=== PATIENT | male | born 1950 | race Caucasian/White ===

== ENCOUNTER 2017-05-31 19:35 | Emergency (ER) | payer MEDICARE, MEDICAID ==
[~2017-05-31] VITALS: Ht 170.2 cm; Wt 72.6 kg
[2017-05-31] MEDS ORDERED: cloNIDine HCL 0.1 MG TAB PO ONE (19:45)
[2017-05-31 20:50] LABS: Basophils # (auto) 0.1 uL; Basophils % (auto) 1.4 % (0.0-2.0); Eosinophils # (auto) 0.3 uL; Eosinophils % (auto) 3.3 % (0.0-7.0); Hematocrit 43.8 % (41.0-53.0); Hemoglobin 15.4 g/dL (13.5-17.5); Lymphocytes # (auto) 2.7 uL; Lymphocytes % (auto) 28.4 % (10.0-50.0); Mean Corpuscular Hgb Conc. 35.2 g/dL (32.0-36.0); Mean Corpuscular Volume 90.8 fL (80.0-100.0); Monocytes # (auto) 0.6 uL; Monocytes % (auto) 6.2 % (0.0-12.0); Neutrophils # (auto) 5.9 uL; Neutrophils % (auto) 60.7 % (37.0-80.0); Platelet Count (auto) 338 10^3/uL (140-450); Red Blood Cells 4.83 10^6/uL (4.5-5.90); Red Cell Distribution Width 12.7 % (11.8-14.3); White Blood Cell 9.7 10^3/uL (4.4-10.8)
[2017-05-31 21:04] LABS: INR 0.95 (0.9-1.15); Partial Thromboplastin Time 26.6 sec (22.64-33.71); Prothrombin Time 10.3 sec (9.37-12.3)
[2017-05-31 21:11] LABS: Anion Gap 8 (5-15); Blood Urea Nitrogen 14 mg/dL (7-18); Calcium 8.9 mg/dL (8.5-10.1); Carbon Dioxide 26 mmol/L (21-32); Chloride 104 mmol/L (98-107); Glucose 86 mg/dL (74-106); Magnesium 2.1 mg/dL (1.6-2.6); Potassium 3.8 mmol/L (3.5-5.1); Sodium 138 mmol/L (136-145)
[2017-05-31 21:14] LABS: Alanine Aminotransferase 20 U/L (16-61); Aspartate Aminotransferase 14 U/L (15-37); BUN/Creatinine Ratio 15.7; GFR African American 110 mL/min; GFR Non-African American 91 mL/min
[2017-05-31 21:19] LABS: Alkaline Phosphatase 54 U/L (45-117); Bilirubin, Total 0.8 mg/dL (0.2-1.0); Total Protein 7.6 g/dL (6.4-8.2)
[2017-05-31] MEDS: SODIUM CHLORIDE 0.9% 500 ML IV ONE ×2 (23:00→23:37)
[2017-05-31 23:06] LABS: Urine Bacteria NONE SEEN /hpf (None Seen); Urine Blood Negative /uL (Negative); Urine Specific Gravity 1.019 (1.001-1.035); Urine WBC <1 /hpf (0 - 3)
[2017-05-31 23:26] VITALS: BP 109/61
== END 2017-05-31 23:45 | disposition home or self-care (01) ==
LOC: ER 19:35 → EDBD 19:35 → ER 22:42
DX: I10 Essential (primary) hypertension (principal); H53.8 Other visual disturbances; R42 Dizziness and giddiness
CPT/HCPCS: 36415; 70450; 71045; 80053; 81001; 83735; 84484; 85025; 85610; 85730; 93005; 96360; 99285; J7040

== ENCOUNTER 2022-08-11 12:13 | Emergency (ER) | payer MEDICARE, OTHER ==
[~2022-08-11] VITALS: Ht 167.6 cm; Wt 73.1 kg
[~2022-08-11 12:13] MED LIST: AMIO200T4 PO; ASPI-543 PO; ATOR20TA50 PO; LOSA-69 PO; METO-6 PO; TICA90TA PO
[2022-08-11] MEDS ORDERED: TETANUS-DIPTH-ACEL PERTUSSIS 0.5ML SYR Tdap IM ONE (14:45)
[2022-08-11] MEDS ORDERED: LIDOCAINE 1% HCL (LOCAL ANESTH.) INJ 20ML MDV ID ONE (14:45)
[2022-08-11] MEDS ORDERED: HYDR-4902 PO (15:48)
[2022-08-11] MEDS ORDERED: CEPH-510 PO (15:48)
[2022-08-11] MEDS ORDERED: IBUP800T26 PO (15:48)
[2022-08-11 16:25] VITALS: BP 173/98
== END 2022-08-11 16:23 | disposition home or self-care (01) ==
LOC: ER 12:13
DX: S61.412A Laceration without foreign body of left hand, initial encounter (principal); M79.5 Residual foreign body in soft tissue; I10 Essential (primary) hypertension; W26.8XXA Contact with other sharp object(s), not elsewhere classified, initial encounter; Y93.89 Activity, other specified; Y92.89 Other specified places as the place of occurrence of the external cause; Y99.8 Other external cause status
CPT/HCPCS: 10120; 90471; 90715; 99285; J2001

== ENCOUNTER 2023-02-03 12:50 | Inpatient (IN) | payer OTHER ==
[2023-02-03] VITALS (7 sets, daily range): BP systolic 70–128; BP diastolic 49–68; PULSE 110–130; RESP 15–22; O2SAT 90–98
[~2023-02-03] VITALS: Ht 167.6 cm; Wt 75.6 kg
[~2023-02-03 12:50] MED LIST changes: +AMIO200T13 PO; -AMIO200T4 PO; +CEPH-510 PO; +HYDR-4902 PO; +IBUP-1455 PO; -LOSA-69 PO; +LOSA50TA46 PO
[2023-02-03] MEDS ORDERED: NOREPINEPHRINE 8 MG/250ML KIT 250 ML IV ONE (13:11)
[2023-02-03] MEDS: NOREPINEPHRINE 8 MG/250ML KIT 250 ML IV SCH ×2 (13:20→23:36)
[2023-02-03] MEDS ORDERED: DOPamine 1600MCG/ML D5W 0 ML IV ONE (13:27)
[2023-02-03] MEDS: DOPamine 1600MCG/ML D5W 250 ML IV SCH (13:30)
[2023-02-03] MEDS ORDERED: VANCOMYCIN 1GM/250ML 250 ML IV ONE (14:15)
[2023-02-03] MEDS ORDERED: ASPirin 300 MG RECTAL SUPP PR ONE (14:15)
[2023-02-03] MEDS ORDERED: CIPROFLOXACIN 400MG/200ML 200 ML IV ONE (14:15)
[2023-02-03] MEDS ORDERED: PIPERACILLIN-TAZO 4.5GM 100 ML IV ONE (14:15)
[2023-02-03 14:27] LABS: Base Excess -10.6 mmol/L (-2.0-2.0)
[2023-02-03 15:07] LABS: Basophils # (auto) 0.1 10 ^3/uL (0-0.2); Basophils % (auto) 0.6 % (0.0-2.0); Eosinophils # (auto) 0.2 10 ^3/uL (0-0.8); Eosinophils % (auto) 1.8 % (0.0-7.0); Hemoglobin 12.4 g/dL (13.5-17.5); Lymphocytes # (auto) 2.5 10 ^3/uL (0.4-5.4); Lymphocytes % (auto) 20.5 % (10.0-50.0); Mean Corpuscular Hemoglobin 31.9 pg (28.0-32.0); Mean Corpuscular Hgb Conc. 33.5 g/dL (32.0-36.0); Mean Corpuscular Volume 95.1 fL (80.0-100.0); Monocytes # (auto) 0.1 10 ^3/uL (0-1.3); Monocytes % (auto) 0.9 % (0.0-12.0); Neutrophils # (auto) 9.4 10 ^3/uL (1.6-8.6); Neutrophils % (auto) 76.2 % (37.0-80.0); Nucleated Red Blood Cells % 0.1 %; Red Blood Cells 3.89 10^6/uL (4.5-5.90); Red Cell Distribution Width 13.1 % (11.8-14.3); White Blood Cell 12.3 10^3/uL (4.4-10.8)
[2023-02-03 15:23] LABS: Alanine Aminotransferase 141 U/L (7-40); Albumin 3.4 g/dL (3.2-4.8); Alkaline Phosphatase 74 U/L (46-116); Anion Gap 13 (5-15); Aspartate Aminotransferase 201 U/L (13-40); BUN/Creatinine Ratio 11.7 (10.0-20.0); Bilirubin, Total 0.6 mg/dL (0.2-1.0); Blood Urea Nitrogen 19 mg/dL (9-23); Calcium 7.4 mg/dL (8.7-10.4); Carbon Dioxide 19 mmol/L (20-30); Chloride 109 mmol/L (98-107); Glucose 288 mg/dL (74-106); Magnesium 1.8 mg/dL (1.6-2.6); Potassium 4.5 mmol/L (3.5-5.1); Sodium 141 mmol/L (136-145); Total Protein 5.3 g/dL (5.7-8.2)
[2023-02-03 15:24] LABS: INR 1.28 (0.9-1.15); Partial Thromboplastin Time 32.8 SEC (24.5-34.5); Prothrombin Time 13.2 sec (9.3-11.8)
[2023-02-03 15:32] LABS: Triglycerides 70 mg/dL (< 150)
[2023-02-03 15:33] LABS: Blood Alcohol < 3.0 mg/dL (<10); LDL Cholesterol 66 mg/dL (< 100)
[2023-02-03 15:34] LABS: Cholesterol 124 mg/dL (< 200); HDL Cholesterol 43 mg/dL (40-59)
[2023-02-03 15:37] LABS: Magnesium 1.9 mg/dL (1.6-2.6)
[2023-02-03 15:51] LABS: Urine Amorphous Crystal FEW /hpf (None Seen); Urine Bacteria NONE SEEN /hpf (None Seen); Urine Blood 3+ /uL (Negative); Urine Clarity HAZY (Clear); Urine Color Yellow (Yellow); Urine Protein, UAD 2+ (Negative); Urine Urobilinogen Normal (Negative); Urine WBC 11 /hpf (0 - 3); Urine pH 5.5 (5.0-8.0)
[2023-02-03 16:01] LABS: Amphetamine Screen, Urine Neg (NEGATIVE); Barbiturate Scree,Urine Neg (NEGATIVE); Benzodiazephine Screen, Urine Neg (NEGATIVE); Cocaine Screen, Urine Neg (NEGATIVE)
[2023-02-03 16:02] LABS: Cannabinoid Screen, Urine Neg (NEGATIVE); Opiate Scree,Urine Neg (NEGATIVE); Phencyclidine Screen, Urine Neg (NEGATIVE)
[2023-02-03] MEDS ORDERED: MIDAZOLAM DRIP 50 mg/50mL 50 ML IV ONE (16:17)
[2023-02-03] MEDS: MIDAZOLAM DRIP 50 mg/50mL 50 ML IV SCH (16:25)
[2023-02-03] MEDS ORDERED: HEPARIN SODIUM (PORCINE) 5000 UNITS/ML 1ML VIAL IV ONE (16:30)
[2023-02-03] MEDS ORDERED: VASOPRESSIN 20 UNIT/ML ONE (19:55)
[2023-02-03] MEDS: VASOPRESSIN 20 UNITS in SODIUM CHL 0.9% 99 ML IV SCH (20:02)
[2023-02-03 20:34] LABS: Basophils # (auto) 0 10 ^3/uL (0-0.2); Eosinophils # (auto) 0.1 10 ^3/uL (0-0.8); Eosinophils % (auto) 1.3 % (0.0-7.0); Mean Corpuscular Volume 94.2 fL (80.0-100.0); Monocytes # (auto) 0.2 10 ^3/uL (0-1.3); Neutrophils # (auto) 4.5 10 ^3/uL (1.6-8.6)
[2023-02-03 20:42] LABS: Basophils % (auto) 0.6 % (0.0-2.0); Hematocrit 43.6 % (41.0-53.0); Hemoglobin 15.1 g/dL (13.5-17.5); Lymphocytes # (auto) 1.8 10 ^3/uL (0.4-5.4); Lymphocytes % (auto) 26.7 % (10.0-50.0); Mean Corpuscular Hemoglobin 32.5 pg (28.0-32.0); Mean Corpuscular Hgb Conc. 34.5 g/dL (32.0-36.0); Neutrophils % (auto) 68.4 % (37.0-80.0); Nucleated Red Blood Cells % 0.2 %; Red Blood Cells 4.63 10^6/uL (4.5-5.90); Red Cell Distribution Width 13.2 % (11.8-14.3); White Blood Cell 6.6 10^3/uL (4.4-10.8)
[2023-02-03] MEDS ORDERED: methylPREDNISolone SOD SUCC 125 MG/2 ML VL IV ONE (20:45)
[2023-02-03] MEDS ORDERED: ALBUMIN 25% 250 ML IV ONE (20:45)
[2023-02-03] MEDS: PHENYLEPHRINE IV 250 ML IV SCH (21:06)
[2023-02-03] MEDS ORDERED: ALBUMIN 25% 200 ML IV ONE (21:15)
[2023-02-03] MEDS: HEPARIN SODIUM (PORCINE) 5000 UNITS/ML 1ML VIAL SC SCH (22:40)
[2023-02-04] VITALS (99 sets, daily range): BP systolic 57–199; BP diastolic 33–118; PULSE 73–123; RESP 14–16; TEMP 97–100; O2SAT 92–100
[2023-02-04] MEDS: DOPamine 1600MCG/ML D5W 250 ML IV SCH ×2 (02:06→09:51)
[2023-02-04] MEDS: PHENYLEPHRINE IV 250 ML IV SCH ×3 (05:05→21:45)
[2023-02-04] MEDS: NOREPINEPHRINE 8 MG/250ML KIT 250 ML IV SCH ×3 (06:10→21:48)
[2023-02-04] MEDS: VASOPRESSIN 20 UNITS in SODIUM CHL 0.9% 99 ML IV SCH ×2 (07:00→18:14)
[2023-02-04 07:14] LABS: Base Excess -9.5 mmol/L (-2.0-2.0)
[2023-02-04 09:13] LABS: Chloride 106 mmol/L (98-107); Potassium 4.3 mmol/L (3.5-5.1); Sodium 136 mmol/L (136-145)
[2023-02-04 09:14] LABS: Anion Gap 10 (5-15); Calcium 8.1 mg/dL (8.5-10.1); Carbon Dioxide 20 mmol/L (20-30)
[2023-02-04 09:19] LABS: BUN/Creatinine Ratio 7.7 (10.0-20.0); Blood Urea Nitrogen 26 mg/dL (9-23)
[2023-02-04 09:36] LABS: Glucose 168 mg/dL (74-106)
[2023-02-04] MEDS: ASPirin 81 mg TAB GT SCH (12:34)
[2023-02-04] MEDS: HEPARIN SODIUM (PORCINE) 5000 UNITS/ML 1ML VIAL SC SCH ×2 (12:35→22:47)
[2023-02-04] MEDS: MIDAZOLAM DRIP 50 mg/50mL 50 ML IV SCH (16:15)
[2023-02-04] MEDS ORDERED: FUROSEMIDE 40 MG/4 ML VIAL IV ONE (19:30)
[2023-02-04] MEDS: SODIUM CHLORIDE 0.9% 1,000 ML IV SCH (22:40)
[2023-02-05] VITALS (106 sets, daily range): BP systolic 65–149; BP diastolic 40–86; PULSE 86–99; RESP 14–16; TEMP 62.2–98.6; O2SAT 99–100
[2023-02-05] MEDS: VASOPRESSIN 20 UNITS in SODIUM CHL 0.9% 99 ML IV SCH ×2 (05:21→16:28)
[2023-02-05] MEDS: PHENYLEPHRINE IV 250 ML IV SCH ×3 (06:05→22:45)
[2023-02-05 07:22] LABS: Hematocrit 37.4 % (41.0-53.0); Hemoglobin 12.8 g/dL (13.5-17.5); Mean Corpuscular Hemoglobin 32.3 pg (28.0-32.0); Mean Corpuscular Hgb Conc. 34.3 g/dL (32.0-36.0); Mean Corpuscular Volume 94.1 fL (80.0-100.0); Red Blood Cells 3.97 10^6/uL (4.5-5.90); White Blood Cell 23.7 10^3/uL (4.4-10.8)
[2023-02-05 07:31] LABS: Chloride 106 mmol/L (98-107); Potassium 5.3 mmol/L (3.5-5.1); Sodium 137 mmol/L (136-145)
[2023-02-05 07:33] LABS: Anion Gap 10 (5-15); Calcium 8.3 mg/dL (8.5-10.1); Carbon Dioxide 21 mmol/L (20-30)
[2023-02-05 07:38] LABS: BUN/Creatinine Ratio 9.8 (10.0-20.0); Glucose 135 mg/dL (74-106)
[2023-02-05 07:43] LABS: Blood Urea Nitrogen 37 mg/dL (9-23)
[2023-02-05 08:28] LABS: Basophils % (manual) 0 (0.0-2.0); Blast Cells 0; Eosinophils % (manual) 0 (0-7); Metamyelocytes % 0; Myelocytes % 0; Promyelocytes % 0; Reactive Lymphocytes 0
[2023-02-05] MEDS: ASPirin 81 mg TAB GT SCH (09:57)
[2023-02-05] MEDS: FUROSEMIDE 40 MG/4 ML VIAL IV SCH (09:58)
[2023-02-05] MEDS: HEPARIN SODIUM (PORCINE) 5000 UNITS/ML 1ML VIAL SC SCH ×2 (10:00→21:52)
[2023-02-05] MEDS: SODIUM CHLORIDE 0.9% 1,000 ML IV SCH ×2 (10:03→21:54)
[2023-02-05] MEDS ORDERED: VANCOMYCIN PER PHARMACY 0 MG IV SCH (11:00)
[2023-02-05] MEDS ORDERED: VANCOMYCIN 1GM/250ML 250 ML IV ONE (12:00)
[2023-02-05 13:08] LABS: Band Neutrophils % (manual) 30; Lymphocytes % (manual) 4 (10.0-50.0); Monocytes % (manual) 3 (0-12); Platelet Estimate Adequate
[2023-02-05] MEDS: DOPamine 1600MCG/ML D5W 250 ML IV SCH ×2 (15:57→22:58)
[2023-02-05] MEDS: MIDAZOLAM DRIP 50 mg/50mL 50 ML IV SCH (16:15)
[2023-02-05] MEDS: PIPERACILLIN-TAZOB 3.375GM 100 ML IV SCH ×2 (16:20→23:59)
[2023-02-06] VITALS (107 sets, daily range): BP systolic 75–150; BP diastolic 44–100; PULSE 63–95; RESP 13–68; TEMP 97.3–98.2; O2SAT 92–100
[2023-02-06] MEDS: VASOPRESSIN 20 UNITS in SODIUM CHL 0.9% 99 ML IV SCH ×2 (03:35→14:42)
[2023-02-06] MEDS: PHENYLEPHRINE IV 250 ML IV SCH ×3 (07:05→23:45)
[2023-02-06 07:36] LABS: Base Excess -4.2 mmol/L (-2.0-2.0)
[2023-02-06] MEDS: FUROSEMIDE 40 MG/4 ML VIAL IV SCH (10:35)
[2023-02-06] MEDS: ASPirin 81 mg TAB GT SCH (10:35)
[2023-02-06] MEDS: HEPARIN SODIUM (PORCINE) 5000 UNITS/ML 1ML VIAL SC SCH ×2 (10:36→22:00)
[2023-02-06] MEDS: SODIUM CHLORIDE 0.9% 1,000 ML IV SCH ×2 (10:37→23:30)
[2023-02-06] MEDS: NOREPINEPHRINE 8 MG/250ML KIT 250 ML IV SCH (10:50)
[2023-02-06] MEDS: PIPERACILLIN-TAZOB 3.375GM 100 ML IV SCH (12:27)
[2023-02-06] MEDS: MIDAZOLAM DRIP 50 mg/50mL 50 ML IV SCH (16:15)
[2023-02-06] MEDS: DOPamine 1600MCG/ML D5W 250 ML IV SCH (23:00)
[2023-02-07] VITALS (62 sets, daily range): BP systolic 89–142; BP diastolic 57–82; PULSE 63–79; RESP 12–16; TEMP 95.9–97.3; O2SAT 91–96
[2023-02-07] MEDS: PIPERACILLIN-TAZOB 3.375GM 100 ML IV SCH ×2 (00:15→12:11)
[2023-02-07] MEDS: VASOPRESSIN 20 UNITS in SODIUM CHL 0.9% 99 ML IV SCH ×2 (01:49→12:56)
[2023-02-07] MEDS: NOREPINEPHRINE 8 MG/250ML KIT 250 ML IV SCH ×2 (07:20→10:50)
[2023-02-07] MEDS: PHENYLEPHRINE IV 250 ML IV SCH (08:05)
[2023-02-07 08:16] LABS: Base Excess -3.2 mmol/L (-2.0-2.0)
[2023-02-07] MEDS: DOPamine 1600MCG/ML D5W 250 ML IV SCH (08:48)
[2023-02-07] MEDS ORDERED: MORPHINE SULFATE INJ 2 MG/ml SYRG IV PRN (09:15)
[2023-02-07] MEDS ORDERED: LORazepam 2MG/ML-1ML VIAL IV PRN (09:15)
[2023-02-07] MEDS: FUROSEMIDE 40 MG/4 ML VIAL IV SCH (09:17)
[2023-02-07] MEDS: ASPirin 81 mg TAB GT SCH (09:21)
[2023-02-07] MEDS: HEPARIN SODIUM (PORCINE) 5000 UNITS/ML 1ML VIAL SC SCH (09:21)
[2023-02-07] MEDS ORDERED: VANCOMYCIN 500 MG in D5W 5% 100 ML IV ONE (11:00)
[2023-02-07] MEDS: SODIUM CHLORIDE 0.9% 1,000 ML IV SCH (14:10)
== END 2023-02-07 16:07 ==
LOC: EDBD 12:50 → ER 12:50 → ICU WEST 22:04 → TELE 22:04 → ICU WEST 02-04 02:36
PROVIDERS: ADMIT Nurse Practitioner Family; ATTEND Nurse Practitioner Family
PROC: 5A1945Z Respiratory Ventilation, 24-96 Consecutive Hours (ICD-10-PCS; principal; 2023-02-03)
PROC: 0BH17EZ Insertion of Endotracheal Airway into Trachea, Via Natural or Artificial Opening (ICD-10-PCS; 2023-02-03)
PROC: 5A12012 Performance of Cardiac Output, Single, Manual (ICD-10-PCS; 2023-02-03)
DX: I21.09 ST elevation (STEMI) myocardial infarction involving other coronary artery of anterior wall (principal); G93.41 Metabolic encephalopathy; J18.9 Pneumonia, unspecified organism; J96.01 Acute respiratory failure with hypoxia; N17.0 Acute kidney failure with tubular necrosis; G93.1 Anoxic brain damage, not elsewhere classified; E87.20 Acidosis, unspecified; J93.9 Pneumothorax, unspecified; J98.11 Atelectasis; Z99.11 Dependence on respirator [ventilator] status; Z66 Do not resuscitate; E11.65 Type 2 diabetes mellitus with hyperglycemia; E78.5 Hyperlipidemia, unspecified; F10.20 Alcohol dependence, uncomplicated; I25.10 Atherosclerotic heart disease of native coronary artery without angina pectoris; E11.22 Type 2 diabetes mellitus with diabetic chronic kidney disease; I12.9 Hypertensive chronic kidney disease with stage 1 through stage 4 chronic kidney disease, or unspecified chronic kidney disease; N18.30 Chronic kidney disease, stage 3 unspecified; Z79.02 Long term (current) use of antithrombotics/antiplatelets; Z83.3 Family history of diabetes mellitus; Z82.49 Family history of ischemic heart disease and other diseases of the circulatory system; Z95.5 Presence of coronary angioplasty implant and graft; I46.2 Cardiac arrest due to underlying cardiac condition
CPT/HCPCS: 31500; 36415; 36556; 36600; 70450; 71045; 80048; 80053; 80061; 80202; 80307; 80320; 81001; 82805; 83735; 83880; 84443; 84484; 85007; 85025; 85027; 85610; 85730; 87040; 87070; 87081; 87205; 92950; 93005; 93306; 94002; 94003; 96365; 96368; 96375; G0378; J2250; J2543; J7060; P9047